=== PATIENT | female | born 1960 | race Caucasian/White ===

== ENCOUNTER 2017-10-07 09:33 | Day surgery (SDC) | END 2017-10-07 16:32 | disposition home or self-care (01) ==

== ENCOUNTER 2019-04-26 05:20 | Day surgery (SDC) | payer OTHER ==
[~2019-04-26] VITALS: Ht 162.6 cm; Wt 79.7 kg
[2019-04-26] VITALS (17 sets, daily range): BP systolic 113–139; BP diastolic 56–77; PULSE 62–70; RESP 12–22; Ht 162.6 cm; Wt 79.7 kg
[~2019-04-26 05:20] MED LIST: CARV6.2579 PO
[2019-04-26] MEDS ORDERED: CEFAZOLIN 2 GM/50 ML (PMX) 50 ML IVPB SCH (06:00)
--- NOTE | 2019-04-26 06:29 | PREOPHP ---
DATE OF ADMISSION: 04/26/2019 HISTORY OF PRESENT ILLNESS: This 57-year-old patient is going to be admitted for diagnostic arthrosc opy of the left shoulder, examination under anesthesia, SLAP repair, Bankart repair and rotator cuff repair. This patient has been experiencing shoulder pain for quite a while. Conservative treatment resulted in limited benefit to the patient, and patient has requested surgical intervention. PAST MEDICAL HISTORY: Renal disease, arthritis, high blood pressure on medication. SOCIAL HISTORY: Patient is nonsmoker. FAMILY HISTORY: Positive for lung cancer and diabetes. ALLERGIES: NO HISTORY OF ALLERGY TO MEDICATION. MEDICATIONS: 1. Hydrocodone 2. Bupropion. 3. Carvedilol. 4. Amlodipine. 5. Lasix 6. Vitamin D3. 7. Sulindac. 8. B6. 9. Folic acid. Patient has failed to respond to conservative treatment, surgery was chosen by the patient. PHYSICAL EXAMINATION: VITAL SIGNS: Height 5 foot 4 inches, 165 pounds. SKIN: Within normal limits. ENT: PERRLA. HEAD AND NECK: Normocephalic. Trachea midline. Bilateral symmetrical carotid pulses. No mass, no bruit, no lymphadenopathy. CARDIOVASCULAR: Normal sinus rhythm. S1, S2 normal. No murmur, no JVD. No peripheral edema. LUNGS: Clear. ABDOMEN: Slightly protuberant. No organomegaly. No mass. Bowel sounds present. GENITOURINARY AND RECTAL: Not done, not pertinent to this admission. MUSCULOSKELETAL: Cervical spine shows a stiff neck. Range of motion of the left shoulder is about 9 5% with tenderness in the anterior glenohumeral joint, subacromial space. Positive impingement, posi tive Beaver test. Muscle atrophy. Spine is clear. Both lower extremities are relatively normal. MRI suspicious impacted anterolateral greater tuberosity fracture. High-grade rotator cuff tendinopa thy versus tear. Tendinopathy of the long head of the bicep. long head of the biceps. Modera te amount of fluid in lateral recess. Diffuse SLAP lesion and there was grade II to III anterior gle nohumeral ligament injury. DIAGNOSES: SLAP lesion, Bankart lesion, anterior and posterior instability. Possible rotator cuff t ear, left shoulder. Treatment plan, alternatives, risks and benefits discussed. The patient understands possible complic ations such as infection, bleeding, nerve damage, vascular damage, deep venous thrombosis, pulmonary embolism, hypersensitivity from medication, and even . Cumming result may not be obtained dependi ng on actual finding, known or unknown factor or factors. No guarantee is being made. Formal H and P is supposed to be done by PCP. Dictated By: PERLA FERRARO/YANG Conf#: [id number] DID#: [id number]
[2019-04-26] MEDS ORDERED: LACTATED RINGER'S 1,000 ML IV SCH (06:30)
[2019-04-26] MEDS ORDERED: EPINEPHrine 1 MG/ML 30 ML INJ ZFS SCH (07:00)
[2019-04-26] MEDS ORDERED: morphine SULFATE/PF (10 MG/10 ML) INJ ONE (07:03)
[2019-04-26] MEDS ORDERED: POLYMYXIN/BACITRACIN 1L IRRIG ONE (07:03)
[2019-04-26] MEDS ORDERED: PROPOFOL 200 MG INJ ONE (07:24)
[2019-04-26] MEDS ORDERED: SEVOFLURANE 15 MIN ONE (07:24)
[2019-04-26] MEDS ORDERED: BUPR150T6 ORAL (07:26)
[2019-04-26] MEDS ORDERED: AMLO-145 ORAL (07:26)
[2019-04-26] MEDS ORDERED: FLUO20CA22 ORAL (07:26)
[2019-04-26] MEDS ORDERED: BUPR300T4 ORAL (07:26)
[2019-04-26] MEDS ORDERED: HYDR-3609 ORAL (07:26)
--- NOTE | 2019-04-26 07:26 | PREAC ---
Date/Time of Note Date/Time of Note DATE: 04/26/19 TIME: 07:24 Anesthesia Eval and Record Evaluation Time Pre-Procedure Interview DATE: 04/26/19 TIME: 07:24 Age 58 Sex female NPO: 8 hrs Preoperative diagnosis left shoulder rotator cuff tear Planned procedure left shoulder diagnostic arthroscopy, EUA, repair bankart repair, rotator cuff repair Past Medical History Past Medical History: Includes Cardio: HTN, CAD, Other (history of DVT) Renal: CKD Psych: Depression, Anxiety Surgery & Anesthesia Issues No known issue Meds Anticoagulation: Yes (off eliquis x 1 month per patient ) Beta Bro within 24 hr: Yes Reason Beta Bro not given: Bradycarida, Hypotension Reported Medications Carvedilol* (Carvedilol*) 6.25 Mg Tablet, 6.25 MG PO BID, #60 TAB 10/07/17 Current Medications Cefazolin Sodium/ Dextrose 50 ml @ 100 mls/hr PREOP IVPB ; Start 04/26/19 at 06:00; Stop 04/26/19 at 17:00 Lactated Ringer's 1,000 ml @ 0 mls/hr Q0M IV ; Start 04/26/19 at 06:30 Meds reviewed: Yes Allergies Coded Allergies: No Known Allergy (Unverified , 04/26/19) NKA, WT [address] [facility] OFF[facility]. 10/06/17 1518 Allergies Reviewed: Yes Labs/Studies Labs Reviewed: Reviewed by anesthesiologist test: N/A Studies: ECG, CXR Pre-procedure Exam Last vitals Vital Signs Date Temp Pulse Resp B/P (MAP) Pulse Ox O2 O2 Flow FiO2 Time Delivery Rate 04/26/19 97.1 67 18 129/66 97 Room Air 06:26 (87) Airway: Adequate mouth opening, Adequate thyromental dist Mallampati: Mallampati II Teeth: Normal Lung: Normal Heart: Normal ASA Physical Status ASA physical status: 3 Emergency: None Planned Anesthetic General/MAC: ETT Nerve block: Brachial plexus (left) Planned Pain Management Single shot nerve block, Parenteral pain med Pre-operative Attestations Prior to commencing anesthesia and surgery, the patient was re-evaluated, there was verification of: *The patient's identity *The results of appropriate recent lab work and preoperative vital signs *The above evaluation not changing prior to induction *Anesthetic plan, risk benefits, alternative and complications discussed with patient/family; questions answered; patient/family understands, accepts and wishes to proceed. RADHA CAALBRESE MD Apr 26, 2019 07:26
[2019-04-26] MEDS ORDERED: CHOL100062 PO (07:27)
[2019-04-26] MEDS ORDERED: VIT1TABL PO (07:27)
[2019-04-26] MEDS ORDERED: MULTI PO (07:27)
[2019-04-26] MEDS ORDERED: APIX5TAB ORAL (07:28)
[2019-04-26] MEDS ORDERED: FENTAnyl 50 MCG/ML VIAL ONE (07:41)
[2019-04-26] MEDS ORDERED: MIDAZOLAM 1 MG/ML 2 ML INJ ONE (07:41)
[2019-04-26] MEDS ORDERED: ROPIVACAINE 0.5 % 30 ML VIAL ONE (07:41)
[2019-04-26] MEDS ORDERED: PROPOFOL 20 ML ONE (07:43)
[2019-04-26] MEDS ORDERED: ROCURONIUM 50 MG INJ ONE (07:43)
[2019-04-26] MEDS ORDERED: LIDOCAINE 2% (SDV) 5 ML INJ ONE (07:43)
[2019-04-26] MEDS ORDERED: SUCCINYLCHOLINE CHLORIDE 100 MG/5 ML SYG IV ONE (07:43)
[2019-04-26] MEDS ORDERED: FAMOTIDINE 20 MG INJ ONE (08:19)
[2019-04-26] MEDS ORDERED: CEFAZOLIN 1 GM INJ ONE (08:19)
[2019-04-26] MEDS ORDERED: DEXAMETHASONE 4 MG/ML 5 ML INJ ONE (08:19)
[2019-04-26] MEDS ORDERED: ONDANSETRON 4 MG INJ ONE (08:19)
[2019-04-26] MEDS ORDERED: EPHEDrine 25 MG/5 ML SYG ONE (08:29)
[2019-04-26] MEDS ORDERED: HYDROmorphONE 2 MG/ML SYG ONE (08:49)
[2019-04-26] MEDS ORDERED: MEPERIDINE 25 MG INJ IV PRN (09:30)
[2019-04-26] MEDS ORDERED: HYDROmorphONE 1 MG/5 ML IV SYRINGE IV PRN ×3 (09:30)
[2019-04-26] MEDS ORDERED: hydrALAzine 20 MG INJ IV PRN (09:30)
[2019-04-26] MEDS ORDERED: EPHEDrine 25 MG/5 ML SYG IV PRN (09:30)
[2019-04-26] MEDS ORDERED: FENTAnyl 50 MCG/ML VIAL IV PRN (09:30)
[2019-04-26] MEDS ORDERED: PROCHLORPERAZINE 10 MG INJ IV PRN (09:30)
[2019-04-26] MEDS ORDERED: DIPHENHYDRAMINE 50 MG INJ IV PRN (09:30)
[2019-04-26] MEDS ORDERED: OXYCODONE/ACETAMINOPHEN (5/325) TAB PO PRN (09:30)
[2019-04-26] MEDS ORDERED: ONDANSETRON 4 MG INJ IV PRN (09:30)
--- NOTE | 2019-04-26 10:06 | SIPON ---
Date/Time of Note Date/Time of Note DATE: 04/26/19 TIME: 10:02 Operative Report Preoperative Diagnosis SLAP, and Bankart lesion,plus cuff tear left shoulder Postoperative Diagnosis The same Operation/Procedure Performed Diagnostic scope, EUA, SLAP repair, Bankart repair, and acromioplasty Surgeon Richardson Vital MD assisted living associate [facility] Anesthesia: general Estimated blood loss: 0 - 10 ml's Transfusion Required none Specimen none Grafts/Implants none Complications none PERLA WEBB MD Apr 26, 2019 10:06
--- NOTE | 2019-04-26 10:11 | PAC ---
Date/Time of Note Date/Time of Note DATE: 04/26/19 TIME: 10:11 Post-Anesthesia Notes Post-Anesthesia Note Last documented vital signs Vital Signs Date Temp Pulse Resp B/P (MAP) Pulse Ox O2 O2 Flow FiO2 Time Delivery Rate 04/26/19 98.4 69 16 119/56 100 Mask 8.0 09:54 (77) Activity: WNL Respiratory function: WNL Cardiovascular function: WNL Mental status: Baseline Pain reasonably controlled: Yes Hydration appropriate: Yes Nausea/Vomiting absent: Yes Comments BP: 120/58 HR: 65 RR: 15 T: 98 Sao2: 100% RADHA CALABRESE MD Apr 26, 2019 10:11
--- NOTE | 2019-04-26 16:34 | OPR ---
DATE OF OPERATION: PREOPERATIVE DIAGNOSIS: SLAP lesion, Bankart lesion, rotator cuff tear, left shoulder. POSTOPERATIVE DIAGNOSIS: SLAP lesion, Bankart lesion, rotator cuff tear, left shoulder (open partial thickness tear of supraspinatus tendon). OPERATION PERFORMED: Diagnostic arthroscopy, examination under general anesthesia, SLAP repair, Bank art repair, acromioplasty of left shoulder. ANESTHESIA: General with a shoulder block by the anesthesiologist. BLEEDING: Minimal, 10 mL. COMPLICATIONS: None. PSYCHOTHERAPIST COUNSELOR: ____ OPERATIVE PROCEDURE: The patient was transferred to the operating room suite, placed on the OR table in supine position. Shoulder block was given by the anesthesiologist and general anesthesia was ind uced. Two grams of Ancef was given. The patient was put on right decubitus position. Axillary roll applied. Bony areas were padded. Beanbag was deflated. During this procedure, we used Arthrex ranjeet ulder rdz with total of 10 pounds in subacromial space, total of 10 pounds in glenohumeral joint. After regular prep and draping, landmarks were marked. Through a posterior portal, glenohumeral dieter nt was entered. Anterolateral portal was established with 8.25 cannula from Arthrex. With the scope inside the shoulder, shoulder was examined under general anesthesia and indicated 40% anterior insta bility. The anterior labrum was flimsy and well retained. Bicep shows a type 2 SLAP lesion, tendon was intact. The subscapularis was intact and there was no loose body in subscapularis recess. No re dundancy of the anterior capsule. The supraspinatus showed partial thickness tear about 10% to 15% o f the supraspinatus from inside out. The teres minor and infraspinatus were intact. Posterior labru m was intact. Glenohumeral joint was normal. There was anterior fraying over the anterior part of t he glenoid and also the rim. We used SutureLasso, FiberStick, and PushLock to repair the type 2 SLAP lesion on the bleeding surface. Then, we used SutureLasso. Redundancy of the capsule was pulled up incorporating the posterior part of the anterior labrum, and we used another PushLock to hold onto t he repair and now the stability was corrected. Excess sutures were cut on both occasions. Shoulder was record from debris using copious saline irrigation. This part was terminated. We entered subacr omial space from posterior portal, lateral portal established, 8.25 cannula was inserted. Acromiopla sty was performed. Cystoscopy was downsloping anterolateral portion. There was fraying of the supra spinatus, but no through and through cuff tear was identified at the supraspinatus, infraspinatus, an d teres minor superiorly. Hemostasis was obtained with the help of Arthrocare Bovie. The subacromia l space was cleaned from debris with saline irrigation. Portal was closed with di, 10 mg Duramo rph mixed with 10 mL of injectable saline. Half was injected in the subacromial space, half in the g lenohumeral joint. A sterile dressing was applied. Shoulder immobilizer placed on. General anesthe phyllis was stopped. The patient was taken to recovery room in good and stable condition. Dictated By: PERLA FERRARO/YANG Conf#: [id number] DID#: [id number]
== END 2019-04-26 12:00 | disposition home or self-care (01) ==
LOC: SDS 05:20
PROVIDERS: ATTEND Internal Medicine Endocrinology, Diabetes & Metabolism
DX: S43.432D Superior glenoid labrum lesion of left shoulder, subsequent encounter (principal); S43.492D Other sprain of left shoulder joint, subsequent encounter; M75.102 Unspecified rotator cuff tear or rupture of left shoulder, not specified as traumatic; X58.XXXD Exposure to other specified factors, subsequent encounter; I12.9 Hypertensive chronic kidney disease with stage 1 through stage 4 chronic kidney disease, or unspecified chronic kidney disease; N18.9 Chronic kidney disease, unspecified; I25.10 Atherosclerotic heart disease of native coronary artery without angina pectoris; Z86.718 Personal history of other venous thrombosis and embolism
CPT/HCPCS: 29806; 29807; C1713; J0171; J0690; J1100; J1170; J2250; J2274; J2405; J2795; J3010